=== PATIENT | female | born 1945 | race Two or more races ===

== ENCOUNTER 2016-12-17 15:23 | Emergency (ER) | payer MEDICARE, BC ==
[~2016-12-17] VITALS: Ht 152.4 cm; Wt 65.0 kg
[2016-12-17 15:30] VITALS: Ht 152.4 cm; Wt 65.0 kg
[2016-12-17] MEDS ORDERED: SOD CHLORIDE 0.9% 500 ML IV STA (16:14)
--- NOTE | 2016-12-17 16:19 | ERD ---
ER Documentation Chief Complaint Date/Time DATE: 12/17/16 TIME: 16:17 Chief Complaint EPISODE OF CONFUSION 230 PM TODAY,NO NEURO DEFICIT NOTED.A/OX4 AT THIS TIME HPI Patient is a 71-year-old female who presents with gradual onset, constant, moderate confusion for 1-1/2 hours that started at 10 AM. She was at jury duty and states that prior to going to the court she was feeling slightly ill, which she describes as generalized fatigue. States that she did not eat a good breakfast, but ate at the court house but had poor appetite. She denies fever, dysuria, headache. She denies focal weakness or numbness. She denies blurry vision or diplopia. She states that she was found wandering around the courthouse lost and could not remember the date. She does not recollect this period of time. ROS All systems reviewed and are negative except as per history of present illness. Medications Home Meds Active Scripts Aspirin* (Aspirin* Chew) 81 Mg Tab.chew, 162 MG PO DAILY, #30 TAB.CHEW Prov:YOUNG HENLEY MD 12/17/16 Reported Medications Amlodipine Besylate* (Norvasc*) 5 Mg Tablet, 5 MG PO QHS, TAB 12/17/16 Losartan Potassium* (Losartan Potassium*) 50 Mg Tablet, 50 MG PO QAM, TAB 12/17/16 Levothyroxine Sodium* (Levothyroxine Sodium*) 100 Mcg Tablet, 100 MCG PO BEFORE BREAKFAST, #30 TAB 12/17/16 Allergies Allergies: Coded Allergies: No Known Allergy (Unverified , 12/17/16) PMhx/Soc Past medical history: Hypertension, hypothyroidism Past surgical history: 3, right knee arthroscopy Social history: Denies tobacco, drinks occasional alcohol. History of Surgery: Yes (c section , rt knee arthroscopy ) Anesthesia Reaction: No Hx Neurological Disorder: No Hx Respiratory Disorders: No Hx Cardiac Disorders: Yes (htn) Hx Psychiatric Problems: No Hx Miscellaneous Medical Probl: Yes (hypothyroidism ) Hx Alcohol Use: Yes (ocassional ) Hx Substance Use: No Hx Tobacco Use: No Smoking Status: Never smoker FmHx Family History: No coronary disease, No diabetes Physical Exam Vitals Vital Signs Date Time Temp Pulse Resp B/P Pulse Ox O2 Delivery O2 Flow Rate FiO2 12/17/16 17:07 63 17 152/97 100 Room Air 12/17/16 15:30 97.1 107 18 166/100 98 Physical Exam Const: Alert, no acute distress Head: Atraumatic Eyes: Normal Conjunctiva, No pallor, no icterus ENT: Normal External Ears, Nose and Mouth.Mucous membranes moist Neck: Full range of motion..~ No meningismus. Resp: Clear to auscultation bilaterally, No wheezes, no rales Cardio: Regular rate and rhythm, no murmurs Abd: Soft, non tender, non distended. Skin: No petechiae or rashes Back: No midline or flank tenderness Ext: No cyanosis, or edema Neur: Awake and alert, Cranial nerves II through XII intact bilaterally, strength and sensation full in 4 extremities, no pronator drift, no dysmetria, negative Babinski's bilaterally. Alert and oriented 4. Psych: Normal Mood and Affect Result Diagram: 12/17/16 1617 12/17/16 1617 Results 24 hrs Laboratory Tests Test 12/17/16 16:17 12/17/16 16:25 White Blood Count 6.110^3/ul Red Blood Count 4.8210^6/ul Hemoglobin 14.0g/dl Hematocrit 42.8% Mean Corpuscular Volume 88.8fl Mean Corpuscular Hemoglobin 29.0pg Mean Corpuscular Hemoglobin Concent 32.7g/dl Red Cell Distribution Width 12.8% Platelet Count 77323^3/UL Mean Platelet Volume 11.3fl Neutrophils % 66.1% Lymphocytes % 28.9% Monocytes % 3.8% Eosinophils % 0.5% Basophils % 0.5% Nucleated Red Blood Cells % 0.0/100WBC Neutrophils # (Manual) 4.010^3/ul Lymphocytes # 1.810^3/ul Monocytes # 0.210^3/ul Eosinophils # 0.010^3/ul Basophils # 0.010^3/ul Nucleated Red Blood Cells # 0.010^3/ul Prothrombin Time 10.9Sec Prothrombin Time Ratio 0.9 INR International Normalized Ratio 0.79 Activated Partial Thromboplast Time 28.2Sec Sodium Level 140mmol/L Potassium Level 4.5mmol/L Chloride Level 103mmol/L Carbon Dioxide Level 26mmol/L Anion Gap 16 Blood Urea Nitrogen 10mg/dl Creatinine 0.73mg/dl Glucose Level 94mg/dl Calcium Level 10.0mg/dl Total Bilirubin 0.1mg/dl Direct Bilirubin 0.00mg/dl Indirect Bilirubin 0.1mg/dl Aspartate Amino Transf (AST/SGOT) 35IU/L Alanine Aminotransferase (ALT/SGPT) 33IU/L Alkaline Phosphatase 124IU/L Troponin I < 0.012ng/ml Total Protein 8.9g/dl Albumin 4.9g/dl Globulin 4.00g/dl Albumin/Globulin Ratio 1.22 Urine Color COLORLESS Urine Clarity CLEAR Urine pH 7.0 Urine Specific [place] 1.005 Urine Ketones NEGATIVEmg/dL Urine Nitrite NEGATIVEmg/dL Urine Bilirubin NEGATIVEmg/dL Urine Urobilinogen NEGATIVEmg/dL Urine Leukocyte Esterase NEGATIVELeu/ul Urine Microscopic RBC 1/HPF Urine Microscopic WBC 1/HPF Urine Hemoglobin 1+mg/dL Urine Glucose NEGATIVEmg/dL Urine Total Protein NEGATIVEmg/dl Current Medications Medications (Trade) Dose Ordered Sig/Emma Route PRN Reason Start Time Stop Time Status Last Admin Dose Admin Sodium Chloride (NS) 500 ml @ 500 mls/hr Q1H STAT IV 12/17/16 16:14 12/17/16 17:13 DC 12/17/16 16:26 Aspirin (Aspirin) 162 mg ONCE ONCE PO 12/17/16 18:30 12/17/16 18:31 DC 12/17/16 18:32 Procedures/MDM EKG read by me: Time 1701, rate 66 Rhythm: Normal sinus [place]: Normal Intervals: Normal ST-T waves: no ischemic changes Ectopy: No Q-waves: No Impression: LVH, No evidence of ischemia or arrhythmia MDM: Patient is a 71-year-old female who presents to the ER with a transient episode of confusional state lasting 1-1/2 hours while she was at jury duty. On arrival in the ER, she was alert and oriented 4. She complained of mild generalized fatigue, but otherwise felt well. She denies having had any speech abnormality, focal weakness or numbness. She does have history of hypertension. Workup showed no electrolyte abnormality, no signs of infection, and no intracranial abnormality. I cannot exclude the possibility of a TIA although there are no clear signs to establish this diagnosis. Patient was given aspirin. Her ABCD 2 score is 4 which is intermediate risk. She has an appointment with her PMD tomorrow, and I spoke with the doctor at her clinic, , who stated that he would be able to arrange for an expedited outpatient TIA workup. I therefore felt that it was reasonable to discharge the patient home. She was advised of the residual risk of stroke over the following days. She will be given a prescription for aspirin. I discussed return precautions, and advised that family observe her in case of recurrence of confusion. Departure Diagnosis: Primary Impression: Confusional state Condition: YOUNG Medina MD Dec 17, 2016 16:19
--- NOTE | 2016-12-17 16:48 | RADRPT ---
PROCEDURE: CT Brain without contrast. CLINICAL INDICATION: Possible stroke TECHNIQUE: A CT of the brain was performed on a GE [employer] 16 -slice CT scanner utilizing axial imaging from the skull base through the vertex without IV contrast. Multiplanar reformatted images were made. Images were reviewed on a PACS workstation. The CTDIvol is 44.68 mGy and the DLP is 6 30.20 mGycm. One of the following 3 does reduction techniques were used during this CT examination: 1) Automated exposure control 2) Adjustment of the mA +/- kV according to patient size or 3) Use of iterative reconstruction technique COMPARISON: None available FINDINGS: There is no intracranial hemorrhage, mass effect, or midline shift. No extra-axial fluid collection is seen. The ventricles and sulci are age appropriate. Mild diffuse volume loss is present. Subtle decreased attenuation is present in the bilateral subcortical white matter, bilateral centrum semiov kaylyn and bilateral periventricular white matter compatible with mild chronic microvascular ischemic d isease. Mild vascular calcifications are present of the intracranial internal carotid arteries. The visualized scalp and calvarium are normal. The bilateral orbits are normal. The bilateral parana winsome sinuses, mastoid air cells, and middle ear cavities are clear. IMPRESSION: 1. No evidence of acute intracranial hemorrhage, infarcts, or acute intracranial pathology. 2. Mild chronic microvascular ischemic disease and mild diffuse volume loss. 3. Mild atherosclerotic vascular disease RPTAT: HDC .Christiane Zavala MD, MD Date Time Electronically viewed and signed by .Christiane Zavala MD, MD on 12/17/2016 16:48 .C/
[2016-12-17 16:53] LABS: BASOPHILS % 0.5 % (0.0-2.0); EOSINOPHILS % 0.5 % (0.0-7.0); HEMATOCRIT 42.8 % (37.0-47.0); LYMPHOCYTES # 1.8 10^3/ul (0.8-2.9); LYMPHOCYTES % 28.9 % (15.0-51.0); MEAN CORPUSCULAR HGB CONC 32.7 g/dl (32.0-37.0); MEAN CORPUSCULAR VOLUME 88.8 fl (82.0-101.0); MEAN PLATELET VOLUME 11.3 fl (7.4-10.4); MONOCYTE # 0.2 10^3/ul (0.3-0.9); MONOCYTES % 3.8 % (0.0-11.0); NEUTROPHILS % 66.1 % (39.0-77.0); PLATELET COUNT 249 10^3/UL (140-415); RED BLOOD COUNT 4.82 10^6/ul (4.20-5.40); RED CELL DISTRIBUTION WIDTH 12.8 % (11.5-14.5); WHITE BLOOD COUNT 6.1 10^3/ul (4.8-10.8)
--- NOTE | 2016-12-17 16:56 | RADRPT ---
PROCEDURE: XR Chest. CLINICAL INDICATION: Possible stroke versus TIA and dyspnea TECHNIQUE: AP Portable chest. COMPARISON: None available FINDINGS: The soft tissues and bones are remarkable for multiple EKG leads superimposed over the chest wall.. No focal infiltrates, masses, or effusions are noted. The mediastinum and heart are remarkable for mild vascular calcifications of the thoracic aorta and borderline cardiomegaly. No pneumothorax is present. Generalized osteopenia is present. IMPRESSION: 1. No radiographic evidence for acute cardiopulmonary disease 2. Mild atherosclerotic vascular disease and borderline cardiomegaly 3. Mild generalized osteopenia RPTAT: HDC .Christiane Zavala MD, MD Date Time Electronically viewed and signed by .Christiane Zavala MD, on 12/17/2016 16:55 .C/
[2016-12-17 17:02] LABS: ADD UMIC YES; UR ASCORBIC ACID NEGATIVE (NEGATIVE); UR BILIRUBIN (Dip) NEGATIVE (NEGATIVE); UR BLOOD (Dip) 1+ mg/dL (NEGATIVE); UR CLARITY CLEAR (CLEAR); UR COLOR COLORLESS (YELLOW); UR GLUCOSE (Dip) NEGATIVE (NEGATIVE); UR KETONES (Dip) NEGATIVE (NEGATIVE); UR LEUKOCYTE ESTERASE (Dip) NEGATIVE Leu/ul (NEGATIVE); UR NITRITE (Dip) NEGATIVE (NEGATIVE); UR RBC 1 /HPF (0-5); UR SPECIFIC GRAVITY (Dip) 1.005 (1.003-1.030); UR TOTAL PROTEIN (Dip) NEGATIVE (NEGATIVE); UR UROBILINOGEN (Dip) NEGATIVE (NEGATIVE)
[2016-12-17 17:07] VITALS: BP 152/97; PULSE 63; RESP 17
[2016-12-17 17:12] LABS: INR 0.79; PROTIME 10.9 Sec (12.2-14.2); PT RATIO 0.9
[2016-12-17 17:13] LABS: PARTIAL THROMBOPLASTIN TIME 28.2 Sec (25.0-35.0)
[2016-12-17 17:14] LABS: ALANINE AMINOTRANSFERASE 33 IU/L (13-69); ALBUMIN 4.9 g/dl (3.3-4.9); ALBUMIN/GLOBULIN RATIO 1.22; ALKALINE PHOSPHATASE 124 IU/L (42-121); ANION GAP 16 (8-16); ASPARTATE AMINO TRANSFERASE 35 IU/L (15-46); BILIRUBIN,INDIRECT 0.1 mg/dl (0-1.1); BILIRUBIN,TOTAL 0.1 mg/dl (0.2-1.3); BLOOD UREA NITROGEN 10 mg/dl (7-20); CARBON DIOXIDE 26 mmol/L (21-31); CHLORIDE 103 mmol/L (97-110); CREATININE 0.73 mg/dl (0.44-1.00); GLUCOSE 94 mg/dl (70-220); POTASSIUM 4.5 mmol/L (3.5-5.1); SODIUM 140 mmol/L (135-144); TOTAL PROTEIN 8.9 g/dl (6.1-8.1)
[2016-12-17] MEDS ORDERED: LEVO100T87 PO (17:15)
[2016-12-17] MEDS ORDERED: AMLO5TAB4 PO (17:16)
[2016-12-17] MEDS ORDERED: LOSA50TA6 PO (17:16)
[2016-12-17 17:34] LABS: TROPONIN-I < 0.012 ng/ml (0.00-0.12)
[2016-12-17] MEDS ORDERED: ASPIRIN 81 MG TAB PO ONE (18:30)
[2016-12-17] MEDS ORDERED: ASPI81TA3 PO (18:32)
== END 2016-12-17 19:07 | disposition home or self-care (01) ==
LOC: E/R 15:23
DX: R41.0 Disorientation, unspecified (principal); R40.2252 Coma scale, best verbal response, oriented, at arrival to emergency department; I10 Essential (primary) hypertension; E03.9 Hypothyroidism, unspecified; R40.2142 Coma scale, eyes open, spontaneous, at arrival to emergency department; R40.2362 Coma scale, best motor response, obeys commands, at arrival to emergency department; R07.9 Chest pain, unspecified; Z79.82 Long term (current) use of aspirin
CPT/HCPCS: 36415; 70450; 71010; 80053; 81001; 84484; 85025; 85610; 85730; 93005; 99285; J7040